=== PATIENT | male | born 1980 | race Caucasian/White ===

== ENCOUNTER 2017-03-08 17:42 | Emergency (ER) | payer OTHER ==
[~2017-03-08] VITALS: Ht 175.2 cm; Wt 72.6 kg
[~2017-03-08 17:42] MED LIST: MOTRIN800 MG PO; TRAMADOL HCL50 MG PO
[2017-03-08] MEDS ORDERED: AUGMENTIN 875875 MG PO (18:11)
== END 2017-03-08 18:32 | disposition home or self-care (01) ==
LOC: ED 17:42
DX: S61.432A Puncture wound without foreign body of left hand, initial encounter (principal); S61.512A Laceration without foreign body of left wrist, initial encounter; F17.200 Nicotine dependence, unspecified, uncomplicated; W54.0XXA Bitten by dog, initial encounter; Y93.89 Activity, other specified; Y92.89 Other specified places as the place of occurrence of the external cause; Y99.9 Unspecified external cause status

== ENCOUNTER 2018-12-23 21:22 | Emergency (ER) | payer OTHER ==
[~2018-12-23] VITALS: Ht 175.2 cm; Wt 68.0 kg
--- NOTE | ~2018-12-23 | EKG ---
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
[~2018-12-23 21:22] MED LIST changes: +AUGMENTIN 875875 MG PO
[2018-12-23 23:06] LABS: BASO # 0.1 10*3/uL (0.0-0.1); BASO % 0.4 % (0.0-1.0); EOS # 0.1 10*3/uL (0.0-0.4); EOS % 0.4 % (1.0-4.0); HEMATOCRIT 37.6 % (42.0-52.0); HEMOGLOBIN 12.7 g/dl (14.0-18.0); LYMPH % 7.2 % (27.0-41.0); MEAN CELL VOLUME 88.3 fl (80.0-94.0); MEAN CORPUSCULAR HGB 29.8 pg (27.0-31.0); MEAN CORPUSCULAR HGB CONC 33.8 g/dl (33.0-37.0); MEAN PLATELET VOLUME 8.6 fl (9.6-12.3); MONO # 0.9 10*3/uL (0.1-1.0); MONO % 6.1 % (3.0-9.0); NEUT # 12.1 10*3/uL (2.3-7.9); NEUT % 85.6 % (47.0-73.0); PLATELET COUNT AUTOMATED 293 10*3/uL (130-400); RED BLOOD COUNT 4.26 10*6/uL (4.50-5.90); RED CELL DISTRI WIDTH 13.2 % (0-14.5); WHITE BLOOD COUNT 14.1 10*3/uL (4.8-10.8)
[2018-12-23 23:08] LABS: ACT PARTIAL THROMBO TIME 22.1 SECONDS (20.0-32.1); INTERNATIONAL NORM RATIO 0.9 (2.0-3.5)
[2018-12-23 23:16] LABS: ALBUMIN 3.2 gm/dl (3.1-4.5); ALKALINE PHOSPHATASE 73 U/L (45-117); BUN 18 mg/dl (7-24); CHLORIDE 104 mmol/L (98-107); CREATININE 0.91 mg/dL (0.70-1.30); SGOT/AST 30 IU/L (3-35); SGPT/ALT 18 U/L (12-78); SODIUM 137 mmol/L (136-145); TOTAL PROTEIN 7.1 gm/dL (6.4-8.2); TROPONIN I < 0.015 ng/ml (<0.045)
[2018-12-23 23:20] LABS: ACETAMINOPHEN (TYLENOL) < 5.0 ug/ml (10-30); ETHYL ALCOHOL < 3.0 mg/dl (<3)
[2018-12-23] MEDS ORDERED: PREDNISONE20 M1 PO (23:54)
[2018-12-23] MEDS ORDERED: AVPAK AZITHROM250 M1 PO (23:54)
== END 2018-12-24 00:16 | disposition home or self-care (01) ==
LOC: ED 21:22
PROVIDERS: Student in an Organized Health Care Education/Training Program
DX: R05 Cough (principal); F17.200 Nicotine dependence, unspecified, uncomplicated

== ENCOUNTER 2019-01-09 13:24 | Emergency (ER) | payer OTHER ==
[~2019-01-09] VITALS: Ht 175.2 cm; Wt 68.0 kg
--- NOTE | ~2019-01-09 | EKG ---
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
[~2019-01-09 13:24] MED LIST changes: +AVPAK AZITHROM250 M1 PO; +PREDNISONE20 M1 PO
[2019-01-09 13:27] VITALS: BP 142/78
[2019-01-09 14:32] LABS: BASO % 0.4 % (0.0-1.0); EOS % 0.3 % (1.0-4.0); HEMATOCRIT 45.7 % (42.0-52.0); HEMOGLOBIN 15.2 g/dl (14.0-18.0); LYMPH % 13.8 % (27.0-41.0); MEAN CELL VOLUME 87.2 fl (80.0-94.0); MEAN CORPUSCULAR HGB CONC 33.3 g/dl (33.0-37.0); MEAN PLATELET VOLUME 8.5 fl (9.6-12.3); MONO # 0.2 10*3/uL (0.1-1.0); MONO % 3.2 % (3.0-9.0); NEUT # 6.1 10*3/uL (2.3-7.9); NEUT % 81.9 % (47.0-73.0); PLATELET COUNT AUTOMATED 313 10*3/uL (130-400); RED BLOOD COUNT 5.24 10*6/uL (4.50-5.90); RED CELL DISTRI WIDTH 13.1 % (0-14.5); WHITE BLOOD COUNT 7.4 10*3/uL (4.8-10.8)
[2019-01-09 14:53] LABS: ALBUMIN 2.9 gm/dl (3.1-4.5); ALKALINE PHOSPHATASE 67 U/L (45-117); BUN 11 mg/dl (7-24); CHLORIDE 107 mmol/L (98-107); CREATININE 0.88 mg/dL (0.70-1.30); POTASSIUM 4.1 mmol/L (3.5-5.1); SGOT/AST 17 IU/L (3-35); SGPT/ALT 17 U/L (12-78); SODIUM 136 mmol/L (136-145); TOTAL PROTEIN 7.6 gm/dL (6.4-8.2)
--- NOTE | 2019-01-09 15:30 | NUR ---
MULTIPLE ATTEMPTS FOR IV ACCESS BY 3 RNS UNSUCCESSFUL. Nasra SWANSON MADE AWARE.
[2019-01-09 15:34] LABS: ACETAMINOPHEN (TYLENOL) < 5.0 ug/ml (10-30); ETHYL ALCOHOL < 3.0 mg/dl (<3)
--- NOTE | 2019-01-09 16:25 | NUR ---
[facility] RN HERE TO ATTEMPT IV ACCESS WITH ULTRASOUND.
--- NOTE | 2019-01-09 16:40 | NUR ---
ATTEMPTS X3 FOR IV ACCESS UNSUCCESSFUL BY JOE ADAMS. PT STATES NOW HE IS LEAVING AMA. PT GOT OUT OF BED AND WALKED OUT WITHOUT SIGNING AMA FORM.
== END 2019-01-09 16:41 | disposition left against medical advice (07) ==
LOC: ED 13:24 → EDHOLD 15:59 → ED 15:59
PROVIDERS: Physician Assistant
DX: F19.239 Other psychoactive substance dependence with withdrawal, unspecified (principal); F10.239 Alcohol dependence with withdrawal, unspecified; R11.0 Nausea; Z79.899 Other long term (current) drug therapy; Z88.0 Allergy status to penicillin; Y90.9 Presence of alcohol in blood, level not specified

== ENCOUNTER 2020-03-22 19:28 | Emergency (ER) | payer OTHER ==
[~2020-03-22] VITALS: Ht 175.2 cm; Wt 72.6 kg
[2020-03-22 22:29] LABS: HEMATOCRIT 44.3 % (42.0-52.0); MEAN CELL VOLUME 88.6 fl (80.0-94.0); MEAN CORPUSCULAR HGB 29.2 pg (27.0-31.0); MEAN PLATELET VOLUME 8.9 fl (9.6-12.3); PLATELET COUNT AUTOMATED 263 10*3/uL (130-400); RED CELL DISTRI WIDTH 12.2 % (0-14.5); WHITE BLOOD COUNT 17.9 10*3/uL (4.8-10.8)
[2020-03-22 22:36] LABS: ALKALINE PHOSPHATASE 69 U/L (45-117); BUN 21 mg/dl (7-24); CHLORIDE 106 mmol/L (98-107); CREATININE 0.85 mg/dL (0.70-1.30); POTASSIUM 4.8 mmol/L (3.5-5.1); SGOT/AST 89 IU/L (3-35); SGPT/ALT 32 U/L (12-78); SODIUM 136 mmol/L (136-145); TOTAL PROTEIN 8.2 gm/dL (6.4-8.2)
[2020-03-22 22:41] LABS: ETHYL ALCOHOL < 3.0 mg/dl (<3)
[2020-03-22 22:48] LABS: ACETAMINOPHEN (TYLENOL) < 5.0 ug/ml (10-30)
[2020-03-22 23:13] LABS: TOTAL CELLS COUNTED 100 #CELLS
[2020-03-22 23:14] LABS: PLATELET SUFFICIENCY NORMAL (NORMAL)
[2020-03-23 04:02] LABS: BILIRUBIN NEGATIVE (NEGATIVE); BLOOD NEGATIVE (NEGATIVE); CLARITY CLEAR (CLEAR); COLOR YELLOW (YELLOW); GLUCOSE NEGATIVE (NEGATIVE); KETONE 1+ (NEGATIVE); LEUKO ESTERASE NEGATIVE (NEGATIVE); NITRITE NEGATIVE (NEGATIVE); UROBILINOGEN 0.2 E.U./dl (0.2-1.0)
[2020-03-23 04:09] LABS: URINE AMPHETAMINES > 1000 (1000ng/ml); URINE BARBITURATES < 200 (200ng/ml); URINE BENZODIAZEPINES < 200 (200ng/ml); URINE CANNABINOIDS (THC) < 50 (50ng/ml); URINE COCAINE > 300 (300ng/ml); URINE METHADONE < 300 (300ng/ml); URINE OPIATES < 300 (300ng/ml)
[2020-03-23 04:11] LABS: URINE PHENCYCLIDINE < 25 (25ng/ml)
== END 2020-03-23 07:01 | disposition home or self-care (01) ==
LOC: ED 19:28
PROVIDERS: Emergency Medicine
DX: T40.5X5A Adverse effect of cocaine, initial encounter (principal); F15.129 Other stimulant abuse with intoxication, unspecified; F17.200 Nicotine dependence, unspecified, uncomplicated; Y92.89 Other specified places as the place of occurrence of the external cause

== ENCOUNTER 2020-03-27 21:34 | Emergency (ER) | payer OTHER | END 2020-03-27 21:39 | disposition left against medical advice (07) | LOC: ED 21:34 | DX: M54.9 Dorsalgia, unspecified (principal); Z53.21 Procedure and treatment not carried out due to patient leaving prior to being seen by health care provider ==

== ENCOUNTER 2021-02-20 19:20 | Inpatient (IN) | payer OTHER ==
[~2021-02-20] VITALS: Ht 175.2 cm; Wt 66.8 kg
[~2021-02-20 19:20] MED LIST changes: +IBUPROFEN600 MG PO; +SEPTDS PO
[2021-02-20 20:08] VITALS: BP 114/54
[2021-02-20 20:29] LABS: HEMATOCRIT 37.8 % (42.0-52.0); MEAN CELL VOLUME 85.5 fl (80.0-94.0); MEAN CORPUSCULAR HGB 29.2 pg (27.0-31.0); MEAN CORPUSCULAR HGB CONC 34.1 g/dl (33.0-37.0); MEAN PLATELET VOLUME 8.4 fl (9.6-12.3); PLATELET COUNT AUTOMATED 450 10*3/uL (130-400); RED BLOOD COUNT 4.42 10*6/uL (4.50-5.90); RED CELL DISTRI WIDTH 12.3 % (0-14.5); WHITE BLOOD COUNT 15.8 10*3/uL (4.8-10.8)
[2021-02-20 20:46] LABS: TOTAL CELLS COUNTED 100 #CELLS
[2021-02-20 20:47] LABS: BURR CELLS FEW; PLATELET SUFFICIENCY NORMAL (NORMAL)
[2021-02-20 20:48] LABS: ALBUMIN 2.8 gm/dl (3.1-4.5); ALKALINE PHOSPHATASE 71 U/L (45-117); BUN 10 mg/dl (7-24); CHLORIDE 103 mmol/L (98-107); POTASSIUM 4.3 mmol/L (3.5-5.1); SGOT/AST 44 IU/L (3-35); SGPT/ALT 29 U/L (12-78); SODIUM 132 mmol/L (136-145); TOTAL PROTEIN 7.5 gm/dL (6.4-8.2)
[2021-02-20 21:00] VITALS: BP 114/76
[2021-02-20 22:00] VITALS: BP 126/74
[2021-02-20 22:05] LABS: BILIRUBIN Negative (Negative); BLOOD Negative (Negative); CLARITY Clear (Clear); COLOR Yellow (Yellow); GLUCOSE Negative (Negative); KETONE Negative (Negative); LEUKO ESTERASE Negative (Negative); NITRITE Negative (Negative)
[2021-02-20 22:13] LABS: URINE AMPHETAMINES > 1000 (1000ng/ml); URINE BARBITURATES < 200 (200ng/ml); URINE BENZODIAZEPINES < 200 (200ng/ml); URINE CANNABINOIDS (THC) > 50 (50ng/ml); URINE COCAINE < 300 (300ng/ml); URINE METHADONE < 300 (300ng/ml); URINE OPIATES < 300 (300ng/ml)
[2021-02-20 22:34] LABS: URINE PHENCYCLIDINE < 25 (25ng/ml)
[2021-02-21] VITALS: BP 118/80
[2021-02-21 02:00] VITALS: BP 114/62
[2021-02-21 05:59] VITALS: BP 108/62
[2021-02-21 06:41] LABS: BASO % 0.3 % (0.0-1.0); EOS # 0.1 10*3/uL (0.0-0.4); EOS % 1.2 % (1.0-4.0); HEMATOCRIT 36.7 % (42.0-52.0); LYMPH # 1.7 10*3/uL (1.3-4.4); MEAN CELL VOLUME 87.8 fl (80.0-94.0); MEAN CORPUSCULAR HGB 29.2 pg (27.0-31.0); MEAN CORPUSCULAR HGB CONC 33.2 g/dl (33.0-37.0); MEAN PLATELET VOLUME 8.8 fl (9.6-12.3); MONO # 1.3 10*3/uL (0.1-1.0); MONO % 10.7 % (3.0-9.0); NEUT # 8.7 10*3/uL (2.3-7.9); PLATELET COUNT AUTOMATED 415 10*3/uL (130-400); RED BLOOD COUNT 4.18 10*6/uL (4.50-5.90); RED CELL DISTRI WIDTH 12.3 % (0-14.5); WHITE BLOOD COUNT 11.9 10*3/uL (4.8-10.8)
[2021-02-21 06:49] LABS: ALBUMIN 2.3 gm/dl (3.1-4.5); ALKALINE PHOSPHATASE 57 U/L (45-117); BUN 9 mg/dl (7-24); CHLORIDE 107 mmol/L (98-107); CREATININE 0.71 mg/dL (0.70-1.30); POTASSIUM 3.6 mmol/L (3.5-5.1); SGOT/AST 49 IU/L (3-35); SGPT/ALT 26 U/L (12-78); SODIUM 136 mmol/L (136-145); TOTAL PROTEIN 6.3 gm/dL (6.4-8.2)
[2021-02-21 13:00] VITALS: BP 123/86
[2021-02-21 16:00] VITALS: BP 120/91
[2021-02-21 20:00] VITALS: BP 139/77
[2021-02-22] VITALS (8 sets, daily range): BP systolic 119–143; BP diastolic 79–93
== END 2021-02-22 19:09 | disposition left against medical advice (07) | DRG 710 ==
LOC: ED 19:20 → EDHOLD 21:52 → 5E 21:52 → EDHOLD 22:22 → 5E 02-21 15:20
PROVIDERS: Emergency Medicine; Internal Medicine; ADMIT Family Medicine; ATTEND Family Medicine
PROC: 0J990ZZ Drainage of Buttock Subcutaneous Tissue and Fascia, Open Approach (ICD-10-PCS; principal; 2021-02-22)
PROC: 0J9R0ZZ Drainage of Left Foot Subcutaneous Tissue and Fascia, Open Approach (ICD-10-PCS; 2021-02-22)
DX: A41.9 Sepsis, unspecified organism (principal); F15.10 Other stimulant abuse, uncomplicated; L03.116 Cellulitis of left lower limb; R65.20 Severe sepsis without septic shock; E87.1 Hypo-osmolality and hyponatremia; D64.9 Anemia, unspecified; E44.0 Moderate protein-calorie malnutrition; F12.10 Cannabis abuse, uncomplicated; F14.10 Cocaine abuse, uncomplicated; L02.811 Cutaneous abscess of head [any part, except face]; L02.31 Cutaneous abscess of buttock; Z53.29 Procedure and treatment not carried out because of patient's decision for other reasons; L02.612 Cutaneous abscess of left foot; R74.01 Elevation of levels of liver transaminase levels; R79.82 Elevated C-reactive protein (CRP); F17.210 Nicotine dependence, cigarettes, uncomplicated; Z71.6 Tobacco abuse counseling; Z86.14 Personal history of Methicillin resistant Staphylococcus aureus infection; Z68.21 Body mass index [BMI] 21.0-21.9, adult

== ENCOUNTER 2021-02-23 11:56 | Inpatient (IN) | payer OTHER ==
[~2021-02-23] VITALS: Ht 175.3 cm; Wt 65.4 kg
[2021-02-23 12:04] VITALS: BP 123/98
[2021-02-23 13:07] LABS: BASO # 0.1 10*3/uL (0.0-0.1); BASO % 0.3 % (0.0-1.0); EOS # 0.1 10*3/uL (0.0-0.4); EOS % 0.7 % (1.0-4.0); HEMATOCRIT 33.6 % (42.0-52.0); LYMPH # 1.6 10*3/uL (1.3-4.4); LYMPH % 8.8 % (27.0-41.0); MEAN CELL VOLUME 87.5 fl (80.0-94.0); MEAN CORPUSCULAR HGB 29.4 pg (27.0-31.0); MEAN CORPUSCULAR HGB CONC 33.6 g/dl (33.0-37.0); MEAN PLATELET VOLUME 8.4 fl (9.6-12.3); MONO # 1.2 10*3/uL (0.1-1.0); MONO % 6.3 % (3.0-9.0); NEUT # 15.5 10*3/uL (2.3-7.9); NEUT % 83.5 % (47.0-73.0); PLATELET COUNT AUTOMATED 500 10*3/uL (130-400); RED BLOOD COUNT 3.84 10*6/uL (4.50-5.90); RED CELL DISTRI WIDTH 12.5 % (0-14.5); WHITE BLOOD COUNT 18.5 10*3/uL (4.8-10.8)
[2021-02-23 13:22] LABS: ALBUMIN 2.5 gm/dl (3.1-4.5); ALKALINE PHOSPHATASE 62 U/L (45-117); BUN 16 mg/dl (7-24); CHLORIDE 107 mmol/L (98-107); CREATININE 0.79 mg/dL (0.70-1.30); POTASSIUM 3.9 mmol/L (3.5-5.1); SGOT/AST 49 IU/L (3-35); SGPT/ALT 28 U/L (12-78); SODIUM 137 mmol/L (136-145); TOTAL PROTEIN 7.1 gm/dL (6.4-8.2)
[2021-02-23 14:18] VITALS: BP 116/72
[2021-02-23 16:00] VITALS: BP 117/72
[2021-02-23 18:15] VITALS: BP 117/72
[2021-02-23 18:58] LABS: URINE AMPHETAMINES > 1000 (1000ng/ml); URINE BARBITURATES < 200 (200ng/ml); URINE BENZODIAZEPINES > 200 (200ng/ml); URINE CANNABINOIDS (THC) > 50 (50ng/ml); URINE COCAINE > 300 (300ng/ml); URINE METHADONE < 300 (300ng/ml); URINE OPIATES > 300 (300ng/ml)
[2021-02-23 19:08] LABS: URINE PHENCYCLIDINE < 25 (25ng/ml)
[2021-02-24] VITALS: BP 99/69
[2021-02-24 12:00] VITALS: BP 118/70
[2021-02-24 16:00] VITALS: BP 132/89
[2021-02-24 20:00] VITALS: BP 121/90; BP 129/95
[2021-02-25] VITALS: BP 114/80; BP 131/89
[2021-02-25 08:00] VITALS: BP 123/78
[2021-02-25 12:00] VITALS: BP 125/85
== END 2021-02-25 13:34 | disposition left against medical advice (07) | DRG 720 ==
LOC: ED 11:56 → EDHOLD 13:12 → 5E 16:10
PROVIDERS: Nurse Practitioner; ADMIT Emergency Medicine; ATTEND Emergency Medicine
DX: A41.9 Sepsis, unspecified organism (principal); L03.116 Cellulitis of left lower limb; L02.811 Cutaneous abscess of head [any part, except face]; L02.31 Cutaneous abscess of buttock; L02.612 Cutaneous abscess of left foot; F15.10 Other stimulant abuse, uncomplicated; F14.10 Cocaine abuse, uncomplicated; F13.10 Sedative, hypnotic or anxiolytic abuse, uncomplicated; F12.10 Cannabis abuse, uncomplicated; D64.9 Anemia, unspecified; F11.13 Opioid abuse with withdrawal; Z53.29 Procedure and treatment not carried out because of patient's decision for other reasons; F17.210 Nicotine dependence, cigarettes, uncomplicated; B95.62 Methicillin resistant Staphylococcus aureus infection as the cause of diseases classified elsewhere; R74.01 Elevation of levels of liver transaminase levels; E44.0 Moderate protein-calorie malnutrition; Z71.6 Tobacco abuse counseling; Z68.21 Body mass index [BMI] 21.0-21.9, adult